=== PATIENT | male | born 1970 | race Caucasian/White ===

== ENCOUNTER 2018-08-20 04:55 | Emergency (ER) | payer OTHER, BC, SELFPAY ==
[2018-08-20 05:29] VITALS: BP 132/90; PULSE 103; RESP 18; TEMP 36.9; O2SAT 94; BMI 38.5
--- NOTE | 2018-08-20 06:04 | ED.WOUNDLAC ---
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 He was working on a saw blade this morning when he caught his leftt thumb on the a tooth on blade. He sustained a laceration to the volar surface of the left thumb. Active bleeding has ceased. He has normal range of motion at the IP joint. There is no numbness or tingling in the thumb. There were no other injuries. He is right-hand dominant. His last tetanus was greater than 5 years ago. Review of Systems Review of Systems All systems reviewed & are unremarkable except as noted in HPI and below Constitutional Denies lethargy and Denies weakness Musculoskeletal Denies numbness and Reports other (Injury as noted in HPI.) Integumentary/Breasts Reports as per HPI, Denies erythema, Denies rash and Reports wounds Neurologic Denies numbness and Denies weakness [facility] Medical History Hypertension (Acute) No significant past surgical history (Acute) Social History Smoking Status: Current every day smoker Exam Initial Vital Signs Initial Vital Signs: Vital Signs Temperature 98.4 F 08/20/18 05:29 Pulse Rate 103 H 08/20/18 05:29 Respiratory Rate 18 08/20/18 05:29 Blood Pressure 132/90 08/20/18 05:29 Pulse Oximetry 94 08/20/18 05:29 Const General: cooperative and well developed Nutritional Appearance: well nourished Orientation: alert, awake, oriented x3 and not confused Skin General: No erythema and other (No rash her chronic skin disease) Neuro General: other (No numbness or weakness in the left thumb.) Extrem Left upper extremity: hand (Irregularly shaped laceration to the volar left thumb crossing the IP joint. The laceration is a flap. Laceration is approximately 3 centimeters. Motion of the left thumb is intact. There are no ligament injuries. The left thumb is neurovascularly intact.) Procedures Laceration Repair Laceration 1: Site: hand Side (If applicable): left (Thumb) Size (cm): 3 Description: flap Depth: simple, single layer Local Anesthetic: lidocaine 2% Amount of anesthesia used (mL): 3 Pre-repair: wound explored, irrigated extensively, deep structures intact and extensive debridement Skin layer closed with: nylon Size (cm): 5-0 Technique: simple, interrupted (No complications) Course Vital Signs - 8 hr 08/20/18 05:29 Temperature 98.4 F Pulse Rate 103 H Respiratory Rate 18 Blood Pressure 132/90 Pulse Oximetry 94 Discharge Plan Departure Patient Disposition: Home Clinical Impression: Laceration of left thumb Instructions: DI for Laceration Repair Activity Restrictions/Additional Instructions: Keep the bandage in place for 2 days. After the initial bandage comes off, cover the wound when active/working. You may wash the area with clean water and soap. Follow-up with your doctor for suture removal in 10 days. Return here if necessary.
[2018-08-20] MEDS: TET,DIPH,PERTUSS(ACELL),VAC/PF 0.5 ML SYRINGE IM (06:43)
[2018-08-20 07:06] VITALS: BP 114/78; PULSE 101; RESP 18; O2SAT 95
== END 2018-08-20 07:08 | disposition home or self-care (01) ==
PROVIDERS: Emergency Provider Emergency Medicine
DX: S61.012A Laceration without foreign body of left thumb without damage to nail, initial encounter (principal); W31.2XXA Contact with powered woodworking and forming machines, initial encounter; Y99.0 Civilian activity done for income or pay
CPT/HCPCS: 12002; 90471; 99283; 90715